=== PATIENT | female | born 1970 ===

== ENCOUNTER 2018-08-31 15:43 | Emergency (ER) | payer OTHER ==
[2018-08-31 15:43] VITALS: BMI 26.9
[2018-08-31 15:50] VITALS: RESP 16
[2018-08-31] MEDS ORDERED: Iohexol 240 (50 ml) PO STA (16:06)
[2018-08-31] MEDS ORDERED: Sodium Chloride 0.9% 500 ML IV STA (16:08)
[2018-08-31] MEDS ORDERED: Iohexol 240 (50 ml) ONE (16:15)
--- NOTE | 2018-08-31 16:34 | ED PDOC ---
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 Patient was working upstairs and suddenly felt lower abdominal pain and was on her way to the bathroom because she felt like having a bowel movement. That is when the patient had a witness syncopal episode that lasted less than a minute, with no convulsions or urinary incontinence or drooling. Patient was reported to have woken up with no post- ictal or lethargic state. She states she still has lower abdominal discomfort. Patient states that she has this pain intermittently 2-3 times a year for many years and that it is often followed by a bowel movement, which sometimes relieves the pain. She has had a bowel movement prior to arrival that was slightly watery but no blood. Patient has not been having diarrhea otherwise. She further states that she has had a gastroenterology work up done with a normal endoscopy and colonoscopy, but no prior abdominal imaging. This is the first time she has ever fainted and she denies any vaginal bleeding, discharge or recent travel. Patient is currently taking antibiotics for tooth infection. PMD: Jaspreet Garcia I Past Medical History Reviewed: Historical Data, Nursing Documentation, Vital Signs Vital Signs: Last Vital Signs Temp 98.0 F 08/31/18 15:45 Pulse 64 08/31/18 15:45 Resp 16 08/31/18 15:45 BP 106/65 08/31/18 15:45 Pulse Ox 98 08/31/18 15:45 - Medical History PMH: Anemia - Surgical History Surgical History: No Surg Hx - Family History Family History: States: CAD, Hypertension - Social History Current smoker - smoking cessation education provided: No - Allergies Allergies/Adverse Reactions: Allergies Allergy/AdvReac Type Severity Reaction Status Date / Time No Known Allergies Allergy Verified 08/31/18 15:45 Review of Systems ROS Statement: Except As Marked, All Systems Reviewed And Found Negative Gastrointestinal: Positive for: Abdominal Pain, Diarrhea. Negative for: Melena, Hematochezia Genitourinary Female: Negative for: Dysuria, Frequency, Incontinence, Hematuria, Vaginal Discharge, Vaginal Bleeding Neurological: Positive for: Other (syncope). Negative for: Seizures Physical Exam - Reviewed Nursing Documentation Reviewed: Yes Vital Signs Reviewed: Yes - Physical Exam Appears: Positive for: Well, No Acute Distress Head Exam: Positive for: ATRAUMATIC, NORMOCEPHALIC Skin: Positive for: Warm, Dry Eye Exam: Positive for: EOMI, PERRL ENT: Negative for: Pharyngeal Erythema, Tonsillar Exudate Neck: Positive for: Painless ROM, Supple Cardiovascular/Chest: Positive for: Regular Rate, Rhythm. Negative for: Murmur Respiratory: Positive for: Normal Breath Sounds. Negative for: Respiratory Distress Gastrointestinal/Abdominal: Positive for: Tenderness (Tenderness to palpation in lower abdominal area bilaterally ). Negative for: Other (Mcburney's point; Dior's sign) Back: Positive for: Normal Inspection. Negative for: L CVA Tenderness, R CVA Tenderness Extremity: Positive for: Normal ROM. Negative for: Deformity Lymphatic: Negative for: Adenopathy Neurologic/Psych: Positive for: Alert. Negative for: Motor/Sensory Deficits - Laboratory Results Result Diagrams: 08/31/18 16:30 08/31/18 16:30 - ECG ECG Rhythm: Positive for: Normal QRS, Normal ST Segment, Sinus Rhythm (normal ) Rate: 71 O2 Sat by Pulse Oximetry: 98 (RA) Pulse Ox Interpretation: Normal Medical Decision Making Medical Decision Making: Time: 1553 Impression: syncope and abdominal pain --Differential diagnosis includes but is not limited to vasovagal syncope, anemia, dehydration, electrolyte abnormality, colitis, or diverticulitis Plan: Type and screen Abd pelvis CT PO and IV contrast EKG CMP Lipase ED urine ED urine dipstick CBC with differential PT PTT Dextrose x2 Ixohexol 50 ml PO Sodium chloride 500 ml Glucose, Blood, POC Time: 2022 EXAM: CT Abdomen and Pelvis with IV contrast CLINICAL HISTORY: Abd pain TECHNIQUE: Axial computed tomography images of the abdomen and pelvis with intravenous contrast. 536.88 mGy-cm CONTRAST: With; [id number] 95ML COMPARISON: None provided. FINDINGS: LUNG BASES: The lung bases appear clear. No pleural effusions are seen. LIVER: Unremarkable. GALLBLADDER AND BILE DUCTS: The gallbladder appears within normal limits. No radioopaque gallstones are seen. No biliary ductal dilatation is evident. PANCREAS: Unremarkable. SPLEEN: Unremarkable. ADRENAL GLANDS: Unremarkable. KIDNEYS, URETERS, AND BLADDER: The kidneys appear within normal limits. There is no hydronephrosis or hydroureter. No urinary calculi are seen. The urinary bladder is normal in size and configuration. STOMACH AND BOWEL: Unremarkable appearance of the stomach and bowel. No evidence of bowel obstruct ion. No evidence suggesting enteritis or colitis. APPENDIX: No evidence of acute appendicitis on CT examination. PERITONEUM: No free fluid. No free air. LYMPH NODES: No lymphadenopathy is evident. REPRODUCTIVE: In the right adnexal region; there is demonstration of a 5.3 x 5.4 x 3.7 cm s moothly marginated heterogeneous mass of decreased attenuation measuring up to - 124.4 HU. Additionally, some focal calcification is seen in the right lateral aspect. In the left adnexal region; there is demonstration of a 2.2 x 2.0 x 2.1 cm similar lesion. Both lesions are consistent with ovarian dermoids. VASCULATURE: No evidence of abdominal aortic aneurysm. BONES: No aggressive appearing osseous lesion. No acute osseous pathology evident. There is evidence of advanced degenerative disc disease at L5-S1. IMPRESSION: Bilateral ovarian dermoids as discussed above. Electronically signed on Aug 31, 2018 8:23:46 PM EST by: Can King M.D., MBA Certified By [facility] & [facility] Fellowship Trained MRI and CT Specialist Labs unremarkable On reevaluation pt continues to appear and feel well. DW pt findings and need for urgent followup with environmental conflict manager. Stable for discharge. Scribe Attestation: Documented by Miller Pedroza, acting as a scribe for Marline Fritz MD. Provider Scribe Attestation: All medical record entries made by the Scribe were at my direction and personally dictated by me. I have reviewed the chart and agree that the record accurately reflects my personal performance of the history, physical exam, medical decision making, and the department course for this patient. I have also personally directed, reviewed, and agree with the discharge instructions and disposition. Disposition - Clinical Impression Clinical Impression: Vasovagal syncope, Dermoid cyst of both ovaries Counseled Patient/Family Regarding: Studies Performed, Diagnosis, Need For Followup - Disposition Referrals: Siva Salgado MD [Medical Doctor] - (CALL TOMORROW TO SETUP FOLLOW APPOINTMENT WITHIN A WEEK) Disposition: Routine/Home Disposition Time: 20:00 Condition: STABLE Additional Instructions: DRINK PLENTY OF HYDRATING FLUIDS AND REST FOLLOWUP WITH DR SALGADO SOON POSSIBLE Instructions: Syncope (Fainting) (DC), Acute Pelvic Pain (DC), Ovarian Cyst (DC) Forms: [facility] ED School/Work Excuse
[2018-08-31 16:44] LABS: EOS % 0.7 % (0.0-4.0); HEMOGLOBIN 11.2 g/dL (12.0-16.0); LYMPH # 0.8 K/uL (1.0-4.3); LYMPH % 15.8 % (20.0-40.0); MEAN CELL VOLUME 87.5 fl (81.0-99.0); MEAN CORPUSCULAR HEMOGLOBIN 28.3 pg (27.0-31.0); MEAN CORPUSCULAR HGB CONC 32.3 g/dL (33.0-37.0); MEAN PLATELET VOLUME 7.5 fl (7.2-11.7); MONO # 0.3 K/uL (0.0-0.8); MONO % 6.1 % (0.0-10.0); NEUT # 3.9 K/uL (1.8-7.0); NEUT % 76.4 % (50.0-75.0); RBC 3.96 Mil/uL (3.80-5.20); RED CELL DISTRIBUTION WIDTH 16.7 % (11.5-14.5); WHITE BLOOD COUNT 5.1 K/uL (4.8-10.8)
[2018-08-31 17:02] LABS: ALB/GLOB RATIO 1.2 (1.0-2.1); ALBUMIN 4.8 g/dL (3.5-5.0); ALT/SGPT 16 U/L (9-52); AST/SGOT 31 U/L (14-36); BLOOD UREA NITROGEN 11 mg/dl (7-17); CALCIUM 9.9 mg/dL (8.4-10.2); GFR NON-AFRICAN AMERICAN > 60; LIPASE 253 U/L (23-300)
[2018-08-31 17:28] LABS: INR 1.1; PROTHROMBIN TIME 12.2 Seconds (9.8-13.1)
[2018-08-31 17:31] LABS: PARTIAL THROMBOPLASTIN TIME 36.7 Seconds (25.6-37.1)
[2018-08-31] MEDS ORDERED: Sodium Chloride 0.9% 50 ML IV ONE (19:03)
[2018-08-31] MEDS ORDERED: Iohexol 300 100 ML IJ ONE (19:03)
[2018-08-31 20:58] VITALS: BP 116/63; PULSE 61; TEMP 98; O2SAT 100
--- NOTE | 2018-09-01 10:40 | CT ---
Date of service: 08/31/2018 PROCEDURE: CT Abdomen and Pelvis with contrast HISTORY: abdominal pain and syncope COMPARISON: None. TECHNIQUE: Contrast dose: 95 mL Omnipaque 300 Radiation dose: Total exam DLP = 536.88 mGy-cm. This CT exam was performed using one or more of the following dose reduction techniques: Automated exposure control, adjustment of the mA and/or kV according to patient size, and/or use of iterative reconstruction technique. FINDINGS: LOWER THORAX: Unremarkable. LIVER: Unremarkable. No gross lesion or ductal dilatation. GALLBLADDER AND BILE DUCTS: Unremarkable. PANCREAS: Unremarkable. No gross lesion or ductal dilatation. SPLEEN: Unremarkable. ADRENALS: Unremarkable. No mass. KIDNEYS AND URETERS: Unremarkable. No hydronephrosis. No solid mass. VASCULATURE: Unremarkable. No aortic aneurysm. No aortic atherosclerotic calcification or mural plaque present. BOWEL: Unremarkable. No obstruction. No gross mural thickening. APPENDIX: Normal appendix. PERITONEUM: Unremarkable. No free fluid. No free air. LYMPH NODES: Unremarkable. No enlarged lymph nodes. BLADDER: Unremarkable. REPRODUCTIVE: Unremarkable uterus. Slightly globular cervix for which further evaluation with transvaginal pelvic ultrasound examination is advised. No discrete mass appreciated. Bilateral ovarian dermoids are noted, approximately 4.3 x 5.3 cm on the right side and 2.4 cm diameter on the left side. These contain predominantly fat attenuation material but also soft tissue as well as some coarse calcification on the right side. Characteristic appearance. No further investigation warranted. BONES: Degenerative disc disease at L5-S1. No acute fracture. OTHER FINDINGS: None. IMPRESSION: Bilateral ovarian dermoids. Globular cervix for which further evaluation with transvaginal pelvic ultrasound examination is advised. Correlate also with direct visual inspection and Pap smear. No additional acute abnormality. The preliminary findings for this examination were reported by [facility] at 08/31/2018. There is discordance of this report with the preliminary findings. Abnormality appearance of the cervix was not described in the preliminary report of this examination.
--- NOTE | 2018-09-01 19:08 | CARD ---
APPROVED REPORT Date of service: 08/31/2018 EKG Measurement Heart [id number] <Conclusion> Sinus rhythm with premature atrial complexes in a pattern of bigeminy Septal infarct, age undetermined Abnormal ECG
--- NOTE | 2018-09-03 15:38 | ED PDOC ---
ED Additional Note - Date & Time of Evaluation Date of Evaluation: 09/03/18 Time of Evaluation: 15:35 - Physician Additional Note Physician Additional Note: PA performing Radiology call backs. CT Abd/Pelvis w/ contrast 08/31/18: FINDINGS: LOWER THORAX: Unremarkable. LIVER: Unremarkable. No gross lesion or ductal dilatation. GALLBLADDER AND BILE DUCTS: Unremarkable. PANCREAS: Unremarkable. No gross lesion or ductal dilatation. SPLEEN: Unremarkable. ADRENALS: Unremarkable. No mass. KIDNEYS AND URETERS: Unremarkable. No hydronephrosis. No solid mass. VASCULATURE: Unremarkable. No aortic aneurysm. No aortic atherosclerotic calcification or mural plaque present. BOWEL: Unremarkable. No obstruction. No gross mural thickening. APPENDIX: Normal appendix. PERITONEUM: Unremarkable. No free fluid. No free air. LYMPH NODES: Unremarkable. No enlarged lymph nodes. BLADDER: Unremarkable. REPRODUCTIVE: Unremarkable uterus. Slightly globular cervix for which further evaluation with transvaginal pelvic ultrasound examination is advised. No discrete mass appreciated. Bilateral ovarian dermoids are noted, approximately 4.3 x 5.3 cm on the right side and 2.4 cm diameter on the left side. These contain predominantly fat attenuation material but also soft tissue as well as some coarse calcification on the right side. Characteristic appearance. No further investigation warranted. BONES: Degenerative disc disease at L5-S1. No acute fracture. OTHER FINDINGS: None. IMPRESSION: Bilateral ovarian dermoids. Globular cervix for which further evaluation with transvaginal pelvic ultrasound examination is advised. Correlate also with direct visual inspection and Pap smear. No additional acute abnormality. The preliminary findings for this examination were reported by [facility] at 08/31/2018. There is discordance of this report with the preliminary findings. Abnormality appearance of the cervix was not described in the preliminary report of this examination. Patient called but no answer and Voicemail box full. Second attempt to be made.
--- NOTE | 2018-09-04 12:51 | ED PDOC ---
ED Additional Note - Date & Time of Evaluation Date of Evaluation: 09/04/18 Time of Evaluation: 12:35 - Physician Additional Note Physician Additional Note: Second attempt made to contact patient re: below findings. Voicemail box full. Letter to be sent to home address on file. FINDINGS: LOWER THORAX: Unremarkable. LIVER: Unremarkable. No gross lesion or ductal dilatation. GALLBLADDER AND BILE DUCTS: Unremarkable. PANCREAS: Unremarkable. No gross lesion or ductal dilatation. SPLEEN: Unremarkable. ADRENALS: Unremarkable. No mass. KIDNEYS AND URETERS: Unremarkable. No hydronephrosis. No solid mass. VASCULATURE: Unremarkable. No aortic aneurysm. No aortic atherosclerotic calcification or mural plaque present. BOWEL: Unremarkable. No obstruction. No gross mural thickening. APPENDIX: Normal appendix. PERITONEUM: Unremarkable. No free fluid. No free air. LYMPH NODES: Unremarkable. No enlarged lymph nodes. BLADDER: Unremarkable. REPRODUCTIVE: Unremarkable uterus. Slightly globular cervix for which further evaluation with transvaginal pelvic ultrasound examination is advised. No discrete mass appreciated. Bilateral ovarian dermoids are noted, approximately 4.3 x 5.3 cm on the right side and 2.4 cm diameter on the left side. These contain predominantly fat attenuation material but also soft tissue as well as some coarse calcification on the right side. Characteristic appearance. No further investigation warranted. BONES: Degenerative disc disease at L5-S1. No acute fracture. OTHER FINDINGS: None. IMPRESSION: Bilateral ovarian dermoids. Globular cervix for which further evaluation with transvaginal pelvic ultrasound examination is advised. Correlate also with direct visual inspection and Pap smear. No additional acute abnormality. The preliminary findings for this examination were reported by [facility] at 08/31/2018. There is discordance of this report with the preliminary findings. Abnormality appearance of the cervix was not described in the preliminary report of this examination.
== END 2018-08-31 20:58 | disposition home or self-care (01) ==
LOC: H.ER 15:43
DX: R55 Syncope and collapse (principal); D27.9 Benign neoplasm of unspecified ovary; D64.9 Anemia, unspecified
CPT/HCPCS: 74177; 80053; 81025; 82948; 83690; 85025; 85610; 85730; 86850; 86900; 93005; 99285; J7040; Q9966; Q9967

== ENCOUNTER 2018-09-09 11:00 | Inpatient (IN) | payer OTHER ==
[2018-09-07 18:43] VITALS: BMI 28.3
[2018-09-09] MEDS ORDERED: Lactated Ringer's 1,000 ML IV ONE ×2 (12:05→13:00)
[2018-09-09] MEDS ORDERED: Rocuronium 10 mg/ml (5 ml) ONE ×2 (12:16→14:39)
[2018-09-09] MEDS ORDERED: Propofol 10 mg/ml Inj (20 ML) ONE (12:16)
[2018-09-09] MEDS ORDERED: Neostigmine 1:1000 (1 mg/ml) Inj ONE (12:16)
[2018-09-09] MEDS ORDERED: Midazolam 2 MG/2 ML VIAL ONE (12:16)
[2018-09-09] MEDS ORDERED: Lidocaine 1% 5ml Abboject ONE (12:16)
[2018-09-09] MEDS ORDERED: Dexamethasone 4 mg/1 ml ONE (12:17)
[2018-09-09] MEDS ORDERED: Phenylephrine 10 mg/ml Inj ONE (12:32)
[2018-09-09] MEDS ORDERED: cefOXitin IV 1 gm in Dextrose 1 GM/50 ML BAG IVPB ONE (12:47)
[2018-09-09] MEDS ORDERED: ePHEDrine 50 mg/ml Inj ONE (13:23)
[2018-09-09] MEDS ORDERED: Bupivacaine 0.25% Inj(30mL) INFIL ONE (14:55)
[2018-09-09] MEDS ORDERED: Acetaminophen 650mg/20.3ml solution UD PO STA (16:08)
[2018-09-09] MEDS: HYDROmorphone 0.5 mg/0.5 ml ISec IVP PRN ×4 (16:15→18:05)
[2018-09-09] MEDS: Lactated Ringer's 1,000 ML IV SCH (18:30)
--- NOTE | 2018-09-09 19:19 | CARD ---
APPROVED REPORT Date of service: 09/09/2018 EKG Measurement Heart [id number] <Conclusion> Normal sinus rhythm Normal ECG
[2018-09-09] MEDS ORDERED: cefOXitin IV 1 gm in Dextrose 1 GM/50 ML BAG IVPB SCH (21:00)
[2018-09-10] MEDS: Lactated Ringer's 1,000 ML IV SCH (02:35)
[2018-09-10] MEDS ORDERED: cefOXitin IV 1 gm in Dextrose 1 GM/50 ML BAG IVPB SCH (05:00)
[2018-09-10 05:35] LABS: HEMOGLOBIN 10.3 g/dL (12.0-16.0); MEAN CELL VOLUME 86.1 fl (81.0-99.0); MEAN CORPUSCULAR HEMOGLOBIN 28.1 pg (27.0-31.0); MEAN CORPUSCULAR HGB CONC 32.6 g/dL (33.0-37.0); RBC 3.67 Mil/uL (3.80-5.20); RED CELL DISTRIBUTION WIDTH 16.9 % (11.5-14.5); WHITE BLOOD COUNT 10.5 K/uL (4.8-10.8)
[2018-09-10 08:33] VITALS: BP 100/62; PULSE 82; RESP 18; TEMP 99.2; O2SAT 100
--- NOTE | 2018-09-10 16:02 | CP.PCM.DIS ---
Provider - Provider Date of Admission: 09/09/18 18:20 Attending physician: Anival Hdz MD Time Spent in preparation of Discharge (in minutes): 25 Hospital Course - Lab Results Lab Results: Most Recent Lab Values WBC 10.5 K/uL (4.8-10.8) D 09/10/18 04:30 RBC 3.67 Mil/uL (3.80-5.20) L 09/10/18 04:30 Hgb 10.3 g/dL (12.0-16.0) L 09/10/18 04:30 Hct 31.6 % (34.0-47.0) L 09/10/18 04:30 MCV 86.1 fl (81.0-99.0) 09/10/18 04:30 MCH 28.1 pg (27.0-31.0) 09/10/18 04:30 MCHC 32.6 g/dL (33.0-37.0) L 09/10/18 04:30 RDW 16.9 % (11.5-14.5) H 09/10/18 04:30 Plt Count 282 K/uL (130-400) 09/10/18 04:30 Blood Type O POSITIVE 09/09/18 12:00 Antibody Screen Negative 09/09/18 12:00 BBK History Checked Patient has bt 09/09/18 12:00 Discharge Plan - Follow Up Plan Condition: GOOD Disposition: HOME/ ROUTINE Instructions: Robot-Assisted Surgery, How to Prevent Surgical Site Infections, Ovarian Cyst Removal, Laparoscopic Surgery Additional Instructions: no heavy lifting ( more than 10 pounds) nothing in vagina, no tampons, douches, no sex until cleared by MD no baths or soaking of any kind Notify MD if fever 101 or above, pain not relieved by RX, drainage from puncture sites, abdominal distension and /or vomiting . Seek medical attention if symptoms worsen or for any other concerns Referrals: Anival Hdz MD [Staff Provider] -
--- NOTE | 2018-09-10 16:06 | CP.PCM.DIS ---
Provider - Provider Date of Admission: 09/09/18 18:20 Attending physician: Anival Hdz MD Consults: none Time Spent in preparation of Discharge (in minutes): 25 Hospital Course - Lab Results Lab Results: Most Recent Lab Values WBC 10.5 K/uL (4.8-10.8) D 09/10/18 04:30 RBC 3.67 Mil/uL (3.80-5.20) L 09/10/18 04:30 Hgb 10.3 g/dL (12.0-16.0) L 09/10/18 04:30 Hct 31.6 % (34.0-47.0) L 09/10/18 04:30 MCV 86.1 fl (81.0-99.0) 09/10/18 04:30 MCH 28.1 pg (27.0-31.0) 09/10/18 04:30 MCHC 32.6 g/dL (33.0-37.0) L 09/10/18 04:30 RDW 16.9 % (11.5-14.5) H 09/10/18 04:30 Plt Count 282 K/uL (130-400) 09/10/18 04:30 Blood Type O POSITIVE 09/09/18 12:00 Antibody Screen Negative 09/09/18 12:00 BBK History Checked Patient has bt 09/09/18 12:00 - Hospital Course Hospital Course: uneventful no complication Discharge Exam - Respiratory Exam Additional comments: incisions healing well no bleeding or dischargr Discharge Plan - Follow Up Plan Condition: GOOD Disposition: HOME/ ROUTINE Patient education suggested?: Yes Instructions: Robot-Assisted Surgery, How to Wash Your Hands Properly, How to Prevent Surgical Site Infections, Ovarian Cyst Removal, Laparoscopic Surgery Additional Instructions: no heavy lifting ( more than 10 pounds) nothing in vagina, no tampons, douches, no sex until cleared by MD no baths or soaking of any kind Notify MD if fever 101 or above, pain not relieved by RX, drainage from puncture sites, abdominal distension and /or vomiting . Seek medical attention if symptoms worsen or for any other concerns Referrals: Anival Hdz MD [Staff Provider] -
--- NOTE | 2018-09-20 00:37 | OP ---
PROCEDURE DATE: 09/09/2018 PREOPERATIVE DIAGNOSES: Pelvic pain, bilateral ovarian cysts. POSTOPERATIVE DIAGNOSES: Pelvic pain, bilateral ovarian cysts, pending pathology. SURGEON: Anival Hdz MD. OXYACETYLENE WELDER: Himanshu Perea MD. ANESTHESIOLOGIST: Uli Webster MD. ANESTHESIA: General anesthesia. PROCEDURE PERFORMED: Laparoscopy with right salpingo-oophorectomy and left ovarian cystectomy. DESCRIPTION OF THE PROCEDURE: With the patient in dorsal lithotomy position under general anesthesia, the patient was prepped and draped in the usual sterile manner. A straight catheter was used to empty the bladder after which the patient was examined under anesthesia. A weighted speculum was placed into the posterior vagina. The cervix was grasped anteriorly and dilated. After this was done, the HUMI uterine manipulator was put into place. We moved to the abdomen where the abdomen was tented and then Veress needle was introduced into the abdomen and pelvic cavity. Abdomen was inflated to about 4 L of CO2. A low transverse incision was made in an area within the umbilicus, about 1 cm. After this was done, a 5 cm trocar was used on the left side, on the right side a 10 cm trocar was used. After this was done, the laparoscope with camera attached was introduced into abdomen and pelvic cavity and the above finding, bilateral adhesions on the ovaries covered with the omentum, and that was visualized bilaterally. Firstly, left ovary was incised and the cyst was removed and secondly the right ovary was freed from both ovary and tubes were incised also. After this was done, the cysts were removed bilaterally using a basket without any complication. The right cyst was larger than the left cyst. Following this, the pelvic cavity was irrigated until clean and Interceed was put into place. Hemostasis was maintained and the incisions were closed after removing both the cysts. After the cysts were removed, the incisions were closed using 2-0 Chromic and Dermabond. Blood loss was minimal. The patient tolerated the procedure well and was in satisfactory condition on the way to recovery room. Anival Hdz MD
== END 2018-09-10 17:00 | disposition home or self-care (01) | DRG 743 ==
LOC: H.OPSURG 11:00 → H.PEDS 18:20
PROVIDERS: ADMIT Specialist; ATTEND Specialist
PROC: 0UT04ZZ Resection of Right Ovary, Percutaneous Endoscopic Approach (ICD-10-PCS; 2018-09-09)
PROC: 0UB14ZZ Excision of Left Ovary, Percutaneous Endoscopic Approach (ICD-10-PCS; 2018-09-09)
PROC: 0UT54ZZ Resection of Right Fallopian Tube, Percutaneous Endoscopic Approach (ICD-10-PCS; principal; 2018-09-09 12:30)
DX: N83.201 Unspecified ovarian cyst, right side (principal); N83.202 Unspecified ovarian cyst, left side; N73.6 Female pelvic peritoneal adhesions (postinfective)